=== PATIENT | female | born 1995 | race Caucasian/White ===

== ENCOUNTER 2017-06-20 19:14 | Emergency (ER) | payer BC ==
[2017-06-20 20:02] VITALS: BP 134/72
--- NOTE | 2017-06-20 20:23 | UC ---
Throat Pain/Nasal Dat HPI - HPI Summary HPI Summary: sore throat x 4 days + no cough , no runny nose, no fever, no chills + swollen neck glands, body aches - History of Current Complaint Chief Complaint: UCGeneralIllness Stated Complaint: THROAT,CONGESTION Time Seen by Provider: 06/20/17 19:52 Hx Obtained From: Patient Hx Last Menstrual Period: 06/10/17 ?: No Onset/Duration: Gradual Onset, Lasting Days - 4, Still Present Severity: Moderate Pain Intensity: 4 Cough: None Associated Signs & Symptoms: Positive: Nasal Discharge. Negative: Dysphagia, FB Sensation, Drooling, Wheezing, Hoarseness, Sinus Discomfort, Fever, Vomiting , Rash - Allergies/Home Medications Allergies/Adverse Reactions: Allergies Allergy/AdvReac Type Severity Reaction Status Date / Time No Known Allergies Allergy Verified 06/20/17 19:51 Home Medications: Home Medications Bcp 1 tab PO DAILY 06/20/17 [History Confirmed 06/20/17] Guaifenesin/Dextromethorphan [Robitussin Cough & Chest 20-400 mg/20Ml] 10 ml PO DAILY PRN 06/20/17 [History Confirmed 06/20/17] Ibuprofen [Advil] 200 mg PO Q4H PRN 06/20/17 [History Confirmed 06/20/17] PMH/Surg Hx/FS Hx/Imm Hx Previously Healthy: Yes - Surgical History Surgical History: Yes Surgery Procedure, Year, and Place: Left ACL, 03/08/13, [place]. RECONSTRUCTION SX ON NOSE - Family History Known Family History: Negative: Diabetes - Social History Alcohol Use: Occasionally Substance Use Type: None Smoking Status (MU): Never Smoked Tobacco Review of Systems Constitutional: Negative Skin: Negative Eyes: Negative ENT: Sore Throat, Nasal Discharge Respiratory: Negative Cardiovascular: Negative Gastrointestinal: Negative Genitourinary: Negative Is Patient Immunocompromised?: No All Other Systems Reviewed And Are Negative: Yes Physical Exam Triage Information Reviewed: Yes Appearance: Well-Appearing, No Pain Distress, Well-Nourished Vital Signs: Initial Vital Signs Temp 99.3 F 06/20/17 19:56 Pulse 87 06/20/17 19:56 Resp 26 06/20/17 19:56 BP 134/72 06/20/17 19:56 Pulse Ox 100 06/20/17 19:56 Vital Signs Reviewed: Yes Eyes: Positive: Conjunctiva Clear ENT: Positive: Normal ENT inspection, Hearing grossly normal, Pharyngeal erythema, Nasal congestion, TMs normal Neck: Positive: Supple, Tenderness @, Enlarged Nodes @ Respiratory: Positive: Chest non-tender, Lungs clear, Normal breath sounds Cardiovascular: Positive: RRR, No Murmur, Pulses Normal Abdominal Exam: Normal Abdomen Description: Positive: Nontender, No Organomegaly, Soft Bowel Sounds: Positive: Present Skin Exam: Normal Throat Pain/Nasal Course/Dx - Differential Dx/Diagnosis Provider Diagnoses: viral pharyngitis Discharge - Discharge Plan Condition: Stable Disposition: HOME Patient Education Materials: Pharyngitis (ED) Referrals: Non Staff,Doctor [Primary Care Provider] - If Needed Additional Instructions: viral illness, no need for antibiotics follow up as needed
== END 2017-06-20 20:27 | disposition home or self-care (01) ==
LOC: UCCORT 19:14
DX: J02.8 Acute pharyngitis due to other specified organisms (principal)
CPT/HCPCS: 87651; 99211; G0463

== ENCOUNTER 2017-06-26 18:51 | Emergency (ER) | payer BC | END 2017-06-26 20:01 | disposition left against medical advice (07) | LOC: UCEAST 18:51 | DX: J34.89 Other specified disorders of nose and nasal sinuses (principal); H92.09 Otalgia, unspecified ear; Z53.21 Procedure and treatment not carried out due to patient leaving prior to being seen by health care provider ==

== ENCOUNTER 2017-06-26 20:02 | Emergency (ER) | payer BC ==
[2017-06-26 21:07] VITALS: BP 132/64
[2017-06-26] MEDS ORDERED: Azithromycin TAB* 250 MG PO ONE (21:14)
--- NOTE | 2017-06-26 21:19 | UC ---
Throat Pain/Nasal Dat HPI - HPI Summary HPI Summary: patient has had increased sinus pressure and ear pain over the last 8 days. - History of Current Complaint Chief Complaint: UCGeneralIllness Stated Complaint: EARACHE,CONGESTION Time Seen by Provider: 06/26/17 21:11 Hx Obtained From: Patient Hx Last Menstrual Period: 06/10/17 ?: No Onset/Duration: Sudden Onset, Lasting Days - 8 Severity: Moderate Pain Intensity: 5 Associated Signs & Symptoms: Positive: Dysphagia, Sinus Discomfort, Nasal Discharge - Allergies/Home Medications Allergies/Adverse Reactions: Allergies Allergy/AdvReac Type Severity Reaction Status Date / Time No Known Allergies Allergy Verified 06/26/17 21:00 PMH/Surg Hx/FS Hx/Imm Hx Previously Healthy: Yes - Surgical History Surgical History: Yes Surgery Procedure, Year, and Place: Left ACL, 03/08/13, [place]. RECONSTRUCTION SX ON NOSE - Family History Known Family History: Negative: Diabetes - Social History Alcohol Use: Occasionally Substance Use Type: None Smoking Status (MU): Never Smoked Tobacco Review of Systems Constitutional: Negative Skin: Negative Eyes: Negative ENT: Sore Throat, Ear Ache, Nasal Discharge, Sinus Congestion Respiratory: Cough Cardiovascular: Negative Gastrointestinal: Negative Genitourinary: Negative Motor: Negative Neurovascular: Negative Musculoskeletal: Negative Neurological: Headache Psychological: Negative Is Patient Immunocompromised?: No All Other Systems Reviewed And Are Negative: Yes Physical Exam Triage Information Reviewed: Yes Appearance: Well-Nourished, Ill-Appearing, Pain Distress Vital Signs: Initial Vital Signs Temp 98.7 F 06/26/17 21:01 Pulse 79 06/26/17 21:01 Resp 14 06/26/17 21:01 BP 132/64 06/26/17 21:01 Pulse Ox 100 06/26/17 21:01 Vital Signs Reviewed: Yes Eye Exam: Normal ENT: Positive: Pharyngeal erythema, TM bulging - left, TM dull, TM red Dental Exam: Normal Neck exam: Normal Neck: Positive: Supple, Nontender, No Lymphadenopathy Respiratory Exam: Normal Respiratory: Positive: Chest non-tender, Lungs clear, Normal breath sounds Cardiovascular Exam: Normal Cardiovascular: Positive: RRR, No Murmur, Pulses Normal Abdominal Exam: Normal Abdomen Description: Positive: Nontender, No Organomegaly, Soft Bowel Sounds: Positive: Present Musculoskeletal Exam: Normal Musculoskeletal: Positive: Strength Intact, ROM Intact, No Edema Neurological Exam: Normal Neurological: Positive: Alert, Muscle Tone Normal Psychological Exam: Normal Skin Exam: Normal Throat Pain/Nasal Course/Dx - Course Course Of Treatment: hx obtained, exam performed ,meds reviewed, treated for sinusitis and otitis media of left ear. - Differential Dx/Diagnosis Differential Diagnosis/HQI/PQRI: Laryngitis, Otitis Media, Pharyngitis, Sinusitis, URI Provider Diagnoses: sinusitis. left otitis media Discharge - Discharge Plan Condition: Stable Disposition: HOME Prescriptions: Azithromycin TAB* [Zithromax TAB (Z-GÓMEZ) 250 mg #6 tabs] 250 mg PO DAILY #4 tab predniSONE TAB* [Deltasone TAB*] 40 mg PO DAILY #14 tab Patient Education Materials: Ear Infection (ED), Warm Compress or Soak (ED) Referrals: Non Staff,Doctor [Primary Care Provider] - Additional Instructions: 1. take the medication as prescribed. 2. Steam showers, ibuprofen, vicks for symptom relief. 3. Follow up as needed.
== END 2017-06-26 21:27 | disposition home or self-care (01) ==
LOC: UCCORT 20:02
DX: J32.9 Chronic sinusitis, unspecified (principal); H66.92 Otitis media, unspecified, left ear
CPT/HCPCS: 99212; A9270-GY; G0463